=== PATIENT | female | born 1970 | race Caucasian/White ===

== ENCOUNTER 2017-08-10 15:12 | Emergency (ER) | payer MEDICARE ==
[~2017-08-10] VITALS: Ht 157.5 cm; Wt 90.7 kg
[~2017-08-10 15:12] MED LIST: DULO30 PO; FEXO60 PO
[2017-08-10] MEDS ORDERED: BRINTELLIX20 MG PO (15:50)
[2017-08-10] MEDS ORDERED: Inderal40 MG (15:50)
[2017-08-10] MEDS ORDERED: Prilosec Otc20 MG PO (15:51)
[2017-08-10] MEDS ORDERED: NUCYNTA50 MG PO (15:51)
[2017-08-10] MEDS ORDERED: Tizanidine HCl2 MG PO (15:52)
[2017-08-10] MEDS ORDERED: MECL12.5 PO (15:53)
[2017-08-10 16:37] LABS: BASOPHILS ABSOLUTE AUTO 0.02 K/mm3 (0.00-0.23); BASOPHILS PERCENT AUTO 0 % (0-2); EOSINOPHILS ABSOLUTE AUTO 0.03 K/mm3 (0.00-0.68); EOSINOPHILS PERCENT AUTO 0 % (0-6); Hematocrit 38.8 % (33.0-51.0); IMMATURE GRAN ABSOLUTE AUTO 0.02 K/mm3 (0.00-0.10); IMMATURE GRAN PERCENT AUTO 0 % (0-1); LYMPHOCYTES ABSOLUTE AUTO 2.08 K/mm3 (0.84-5.20); LYMPHOCYTES PERCENT AUTO 20 % (21-46); MONOCYTES ABSOLUTE AUTO 0.62 K/mm3 (0.16-1.47); MONOCYTES PERCENT AUTO 6 % (4-13); Mean Corpuscular HGB 30.3 pg (26.0-34.0); Mean Corpuscular HGB Conc 33.5 g/dL (31.5-36.5); Mean Corpuscular Volume 90 fL (80-100); Mean Platelet Volume 10.2 fL (9.1-12.4); NEUTROPHILS ABSOLUTE AUTO 7.75 K/mm3 (1.96-9.15); NEUTROPHILS PERCENT AUTO 74 % (41-73); Platelet Count 312 K/mm3 (150-400); Red Blood Cell Count 4.29 M/mm3 (3.80-5.20); White Blood Cell Count 10.52 K/mm3 (4.00-11.30)
[2017-08-10 16:55] LABS: C-REACTIVE PROTEIN, EXT RANGE 0.838 mg/dL (0.000-0.300)
[2017-08-10 16:56] LABS: Alanine Aminotransfer (ALT/SGP 25 U/L (12-78); Albumin, Blood 3.5 g/dL (3.4-5.0); Albumin/Globulin Ratio 0.9 (0.8-1.8); Alk Phos 126 U/L (50-136); Anion Gap 5 mmol/L (6-16); Aspartate Aminotrans (AST/SGOT 14 U/L (12-37); Bilirubin, Total 0.5 mg/dL (0.1-1.0); Blood Urea Nitrogen 13 mg/dL (8-24); Bun/Creatinine Ratio 15.6 (12.0-20.0); CO2, Blood 28 mmol/L (21-32); Chloride, Blood 104 mmol/L (98-108); Creatinine, Blood 0.83 mg/dL (0.40-1.00); Glomerular Filtration Rate >60 (60-); Glucose, Blood 99 mg/dL (70-99); Potassium, Blood 4.2 mmol/L (3.5-5.5); Sodium, Blood 137 mmol/L (136-145); Total Protein, Blood 7.5 g/dL (6.4-8.2)
[2017-08-10] MEDS ORDERED: Ativan1 MG PO (17:22)
== END 2017-08-10 17:32 | disposition home or self-care (01) ==
LOC: ER 15:12
PROVIDERS: Internal Medicine
DX: F41.9 Anxiety disorder, unspecified (principal); Z88.8 Allergy status to other drugs, medicaments and biological substances; Z79.899 Other long term (current) drug therapy
CPT/HCPCS: 36415; 80053; 85025; 86140; 96374; 99283; J2060

== ENCOUNTER → 2018-09-08 | Outpatient (CLI) | payer MEDICARE, OTHER ==
[~2018-09-08] MED LIST changes: +Ativan1 MG PO; +BRINTELLIX20 MG PO; +Inderal40 MG; +MECL12.5 PO; +NUCYNTA50 MG PO; +Prilosec Otc20 MG PO; +Tizanidine HCl2 MG PO
[2018-09-08 16:27] LABS: Source, Urine Clean Catch
[2018-09-08 18:24] LABS: Bilirubin, Urine Neg (Neg); Blood, Urine Neg (Neg); Glucose Qualitative, Urine Neg (Neg); Ketones, Urine Neg (Neg); Leukocyte Esterase, Urine Neg (Neg); Nitrite, Urine Neg (Neg); Protein, Urine Neg (Neg); Urobilinogen, Urine NORM (Normal)
[2018-09-08 18:43] LABS: Appearance, Urine Clear (Clear); Color, Urine Yellow (P-Yellow)
== END | disposition home or self-care (01) ==
LOC: LAB 14:13 → LAB SHORT 14:13
PROVIDERS: Obstetrics & Gynecology
DX: R30.0 Dysuria (principal)
CPT/HCPCS: 81003

== ENCOUNTER → 2022-03-11 | Outpatient (CLI) | payer MEDICARE, OTHER ==
[2022-03-11 16:43] LABS: Source, Urine Clean Catch
[2022-03-11 19:45] LABS: Appearance, Urine Clear (Clear); Bilirubin, Urine Neg (Neg); Blood, Urine Neg (Neg); Glucose Qualitative, Urine Neg (Neg); Ketones, Urine Neg (Neg); Leukocyte Esterase, Urine Neg (Neg); Nitrite, Urine Neg (Neg); Protein, Urine Neg (Neg); Urobilinogen, Urine NORM (Normal)
[2022-03-11 19:55] LABS: Color, Urine Pale Yellow (P-Yellow)
[2022-03-12 10:53] LABS: Candida species (DNA Probe) Negative (NEGATIVE); G. vaginalis (DNA Probe) Negative (NEGATIVE); T. vaginalis (DNA Probe) Negative (NEGATIVE)
== END | disposition home or self-care (01) ==
LOC: LAB SHORT 16:29 → LAB 16:29
PROVIDERS: Advanced Practice Midwife
DX: R10.2 Pelvic and perineal pain (principal)
CPT/HCPCS: 81003; 87480; 87510; 87660

== ENCOUNTER 2025-03-07 06:58 | Day surgery (SDC) | payer MEDICARE, OTHER ==
[~2025-03-07] VITALS: Ht 157.5 cm; Wt 75.2 kg
[2025-03-07] MEDS ORDERED: CeFAZolin Sodium 2,000 MG VIAL ONE (07:04)
[2025-03-07] MEDS ORDERED: LAMO100 PO (07:23)
[2025-03-07] MEDS ORDERED: AJOVY SYRI225 MG/1.5 SQ (07:23)
[2025-03-07] MEDS ORDERED: MONT10T (07:24)
[2025-03-07] MEDS ORDERED: Lidocaine 1%-Epineph 1:100000 20 ML MDV INJ ONE (07:27)
[2025-03-07] MEDS ORDERED: Sodium Bicarb 8.4% 1 MEQ/ML 50 ML Vial XX ONE (07:27)
[2025-03-07] MEDS ORDERED: NS 500 ML IV ONE (07:29)
--- NOTE | 2025-03-07 07:29 | NUR ---
03/07/25 0729 Mary Sharma 8ML LIDOCAINE 1% WITH EPI 1:100,000 [place]JECTED [place] [address] SMITH. TIME OUT DONE PRIOR TO INJECTION. PT TOLERATED WELL.
[2025-03-07 09:13] VITALS: BP 112/74
== END 2025-03-07 09:00 | disposition home or self-care (01) ==
LOC: ORSCSDS 06:58
PROVIDERS: Orthopaedic Surgery
PROC: 01N54ZZ Release Median Nerve, Percutaneous Endoscopic Approach (ICD-10-PCS; principal; 2025-03-07 08:15)
DX: G56.03 Carpal tunnel syndrome, bilateral upper limbs (principal); K21.9 Gastro-esophageal reflux disease without esophagitis; I10 Essential (primary) hypertension; G40.909 Epilepsy, unspecified, not intractable, without status epilepticus; Z79.899 Other long term (current) drug therapy
CPT/HCPCS: J0690; J2704; J7040